=== PATIENT | female | born 1985 | race Caucasian/White ===

== ENCOUNTER 2022-08-01 17:16 | Emergency (ER) | payer OTHER, MEDICAID, SELFPAY ==
--- NOTE | 2022-08-01 17:41 | PC.NURSE ---
pt is outside walking. called 3x . will check back
--- NOTE | 2022-08-01 17:57 | PC.NURSE ---
called patient again in Er lobby.. walked to outside door and also called. no answer.
== END 2022-08-01 17:59 | disposition left against medical advice (07) ==
PROVIDERS: Emergency Provider Emergency Medicine
DX: N23 Unspecified renal colic (principal)